=== PATIENT | female | born 1935 | race Hispanic/Latino ===

== ENCOUNTER → 2019-01-02 | Outpatient (CLI) | payer OTHER | END | disposition home or self-care (01) | LOC: OIH 11:13 | PROVIDERS: ATTEND Family Medicine | DX: Z13.6 Encounter for screening for cardiovascular disorders (principal) | CPT/HCPCS: 75571 ==

== ENCOUNTER → 2025-01-21 | Outpatient (CLI) | payer MEDICARE ==
--- NOTE | 2025-01-21 15:10 | HMCIMG ---
CERV SPINE 2-3VWS HISTORY: Neck pain COMPARISON: None FINDINGS: 3 images of cervical spine were obtained. There are degenerative changes with cervical spine spondylosis. Disc space narrowings are seen at C4-5, C5-6 and C6-7 levels. There is straightening of normal lordotic curvature which may be related to muscle spasm or positioning. No loss of vertebral height is seen. No fracture or dislocation is seen. Degenerative changes are seen. IMPRESSION: 1. No fracture is seen. DJD with cervical spine spondylosis.
== END | disposition home or self-care (01) ==
LOC: RAH 14:06
PROVIDERS: ATTEND Family Medicine
DX: M47.812 Spondylosis without myelopathy or radiculopathy, cervical region (principal); M48.02 Spinal stenosis, cervical region
CPT/HCPCS: 72040

== ENCOUNTER → 2025-02-04 | Outpatient (CLI) | payer MEDICARE ==
[~2025-02-04] MED LIST: REGADENOSON 0.4 MG/5 ML PF SYG IVP ONE
--- NOTE | 2025-02-04 16:33 | HMCSR ---
APPROVED REPORT Height: 5 ft 0in Weight: 125 lbs TEST INDICATIONS SHORTNESS OF BREATH The imaging protocol used to acquire images was Rest Tc-99m/stress Tc-99m 1 day Consent: The procedure was explained and understood by the patient. Informerd consent was witnessed Gail SNELL RN First, low dose rest was performed then high dose stress. RESTING DATA: The resting ekg shows: NSR Rest SPECT myocardial perfusion imaging was performed in supine position minutes following the intra venous injection of 11 mCi of Tc-99 Sestamibi. Time of rest injection: 09:40: Date: 02/04/2025 PHARMACOLOGIC STRESS: Pharmacologic stress test was performed by injecting regadenoson 0.4 mg IV push followed by the intra venous injection of 30 mCi of Tc-99 Sestamibi. Time of stress injection: 11:00: Date: 02/04/2025 Heart Rate at time of stress injection: 57 bpm. Gated Stress SPECT was performed 60 minutes after stress injection. The images were gated to evaluate regional wall motion and calculate left ventricular ejection fracti on. STRESS DETAILS Reason for Termination: Infusion complete Stress Symptoms: Dyspnea, Stomach Cramping Max HR Achieved: 89 bpm % of APMHR Achieved: 79 Max Blood Pressure: 192/78 mmHg Stress ECG: NSR Study quality was good. Lung uptake was Normal. LEFT VENTRICLE The left ventricular ejection fraction was calculated to be 70%.TID = . LV PERFUSION Small to moderate septum and anterior septum reversible defect seen Conclusion Mild to moderate septum and anteroseptum ( proximal LAD) ischemia NO infarct Moderate risk.
== END | disposition home or self-care (01) ==
LOC: RAH 09:10
PROVIDERS: ATTEND Internal Medicine Cardiovascular Disease
DX: I25.9 Chronic ischemic heart disease, unspecified (principal); R06.00 Dyspnea, unspecified; R25.2 Cramp and spasm; R06.02 Shortness of breath
CPT/HCPCS: 78452; 93017; J2785; A9500 ×2

== ENCOUNTER → 2025-08-17 | Outpatient (CLI) | payer MEDICARE ==
--- NOTE | 2025-08-19 08:05 | HMCIMG ---
EXAM: CR Chest, 2 View. CLINICAL HISTORY: Other forms of dyspnea COMPARISON: None provided. FINDINGS: LUNGS: There is no mass, infiltrate, or acute pulmonary abnormality. PLEURAL SPACES: No evidence of pleural effusion or pneumothorax. MEDIASTINUM: Cardiomegaly BONES: No aggressive appearing osseous lesion seen. IMPRESSION: No acute pulmonary pathology is evident. Cardiomegaly /[place]
== END | disposition home or self-care (01) ==
LOC: RAH 15:20
PROVIDERS: ATTEND Family Medicine
DX: I51.7 Cardiomegaly (principal); R06.09 Other forms of dyspnea
CPT/HCPCS: 71046